=== PATIENT | male | born 1975 | race Caucasian/White ===

== ENCOUNTER 2022-10-01 14:00 | Outpatient (RCR) | payer OTHER, SELFPAY | END 2022-10-14 09:49 | disposition home or self-care (01) | LOC: PT.CARL 14:00 | PROVIDERS: Visit Provider Orthopaedic Surgery | DX: M25.561 Pain in right knee (principal); Z96.651 Presence of right artificial knee joint | CPT/HCPCS: 97010; 97014; 97110; 97140; 97163; 97164; 97530; G0283 ==

== ENCOUNTER 2022-11-12 09:00 | Outpatient (RCR) | payer OTHER, SELFPAY | END 2022-12-08 08:20 | disposition home or self-care (01) | LOC: PT 09:00 | PROVIDERS: Visit Provider Orthopaedic Surgery | DX: M25.561 Pain in right knee (principal); Z96.651 Presence of right artificial knee joint | CPT/HCPCS: 20560; 20561; 97010; 97014; 97110; 97163; G0283 ==

== ENCOUNTER → 2023-01-01 10:15 | Outpatient (CLI) | payer OTHER, SELFPAY ==
--- NOTE | 2023-01-01 10:18 | XR_ITS ---
FINAL REPORT CLINICAL HISTORY: Rt knee pain FINDINGS: Right knee Three views were obtained. There is no acute fracture or dislocation. The patient is status post knee arthroplasty. There is chronic calcification posterior to the distal femur. IMPRESSION: Postoperative and chronic appearing findings. Reviewed, Interpreted and Dictated by Neo Frausto III, MD Transcribed by Melba Basilio Authenticated and . [facility]
== END ==
PROVIDERS: PCP Family Medicine; Visit Provider Orthopaedic Surgery
DX: M25.561 Pain in right knee (principal)
CPT/HCPCS: 73562

== ENCOUNTER 2024-02-23 15:00 | Outpatient (RCR) | payer OTHER, SELFPAY | END 2024-03-01 07:45 | disposition home or self-care (01) | LOC: PT 15:00 | PROVIDERS: Visit Provider Orthopaedic Surgery | DX: M25.561 Pain in right knee (principal); Z96.651 Presence of right artificial knee joint | CPT/HCPCS: 97010; 97014; 97110; 97140; 97163; 97164; 97530; G0283 ==